=== PATIENT | male | born 1985 | race Caucasian/White ===

== ENCOUNTER 2023-05-04 00:39 | Emergency (ER) | payer BC ==
[2023-05-04] MEDS ORDERED: VANCOMYCIN 1 GM/VIAL ONE (03:50)
[2023-05-04] MEDS ORDERED: NA CHLORIDE 0.9% 500 ML ONE (03:51)
[2023-05-04] MEDS ORDERED: PIPERACIL/TAZO 3.375 GM VIAL IV ONE (03:51)
[2023-05-04] MEDS ORDERED: NA CHLORIDE 0.9% 100 ML ONE (03:51)
[2023-05-04] MEDS ORDERED: NA CHLORIDE 0.9% 1,000 ML ONE (03:51)
[2023-05-04 04:25] LABS: Absolute Lymphocytes (CBC) 2.7 K/uL (0.7-4.9); Hematocrit 41.1 % (39.6-49.0); MCV 92.5 fL (80-100); MPV 7.6 fL (7.6-11.3); Platelets 232 thou/uL (152-406); RBC Red Blood Cell Count 4.45 M/uL (4.33-5.43)
[2023-05-04 04:41] LABS: Albumin 3.7 g/dL (3.4-5.0); Bilirubin Direct 0.1 mg/dL (0-0.2); Bilirubin Indirect, Calculated 0.4 mg/dL (0.2-0.8); Bilirubin Total 0.5 mg/dL (0.2-1.0); C-Reactive Protein 22.6 mg/L (<3.00); Potassium 3.9 mEq/L (3.5-5.1); Protein, Total 7.3 g/dL (6.4-8.2)
--- NOTE | 2023-05-04 05:32 | ER ---
Nurse's Notes [facility] Name: Sonu Guthrie Age: 37 yrs Sex: Male : 1985 Arrival Date: 05/04/2023 Time: 00:39 Bed 19 Private MD: Diagnosis: Pain in right knee;Right knee postoperative pain Presentation: 05/04 01:21 Chief complaint: Patient states: PAIN/SWELLING R KNEE, R KNEE ARTHROSCOPY x5 DAYS WITH bp DR PRIEST \T\ [facility]. Coronavirus screen: At this time, the client does not indicate any symptoms associated with coronavirus-19. Ebola Screen: No symptoms or risks identified at this time. Initial Sepsis Screen: Does the patient meet any 2 criteria? No. Patient's initial sepsis screen is negative. Does the patient have a suspected source of infection?. Risk Assessment: Do you want to hurt yourself or someone else? Patient reports no desire to harm self or others. Onset of symptoms is unknown. 01:21 Method Of Arrival: Wheelchair bp 01:21 Acuity: SHERLEY 3 bp Historical: - Allergies: 01:23 Amiodarone; bp - Home Meds: 01:23 None [Active]; bp - PMHx: 01:23 None; bp - Immunization history:: Adult Immunizations up to date. - Social history:: Smoking status: Patient denies any tobacco usage or history of. - Family history:: not pertinent. Screenin:11 [facility] ED Fall Risk Assessment (Adult) History of falling in the last 3 months, jb4 including since admission No falls in past 3 months (0 pts) Confusion or Disorientation No (0 pts) Score/Fall Risk Level 0 - 2 = Low Risk Oriented to surroundings, Maintained a safe environment. Abuse screen: Denies threats or abuse. Nutritional screening: No deficits noted. Tuberculosis screening: No symptoms or risk factors identified. Assessment: 03:15 General: Appears in no apparent distress. comfortable, Behavior is calm, cooperative, jb4 appropriate for age. Pain: Complains of pain in right knee Pain does not radiate. Pain currently is 4 out of 10 on a pain scale. Neuro: Level of Consciousness is awake, alert, obeys commands, Oriented to person, place, time, situation. Cardiovascular: Patient's skin is warm and dry. Respiratory: Airway is patent Respiratory effort is even, unlabored, Respiratory pattern is regular, symmetrical. GI: No signs and/or symptoms were reported involving the gastrointestinal system. : No signs and/or symptoms were reported regarding the genitourinary system. EENT: No signs and/or symptoms were reported regarding the EENT system. Derm: Skin is intact, Skin is pink, warm \T\ dry. Musculoskeletal: Circulation, motion, and sensation intact. Range of motion: intact in all extremities. 04:15 Reassessment: Patient appears in no apparent distress at this time. Patient and/or jb4 family updated on plan of care and expected duration. Pain level reassessed. Patient is alert, oriented x 3, equal unlabored respirations, skin warm/dry/pink. 05:15 Reassessment: Patient appears in no apparent distress at this time. Patient and/or jb4 family updated on plan of care and expected duration. Pain level reassessed. Patient is alert, oriented x 3, equal unlabored respirations, skin warm/dry/pink. 06:11 Reassessment: Patient appears in no apparent distress at this time. Patient and/or jb4 family updated on plan of care and expected duration. Pain level reassessed. Patient is alert, oriented x 3, equal unlabored respirations, skin warm/dry/pink. Vital Signs: 01:21 BP 117 / 76; Pulse 100; Resp 16; Temp 98; Pulse Ox 96% ; Weight 117.93 kg; Height 6 ft. bp 0 in. ; 04:00 BP 123 / 86; Pulse 82; Resp 16; Pulse Ox 97% on R/A; jb4 05:00 BP 127 / 76; Pulse 82; Resp 16; Pulse Ox 98% on R/A; jb4 01:21 Body Mass Index 35.26 (117.93 kg, 182.88 cm) bp ED Course: 00:42 Patient arrived in ED. ag3 00:54 Markel Greenfield MD is Attending Physician. sp4 01:23 Triage completed. bp 01:39 Knee Right Wo Cont In Process Unspecified. EDMS 05:30 Extremity Venous Uni Ltd US In Process Unspecified. EDMS 05:31 Wilfrido Deal MD is Referral Physician. sp4 05:33 Magan Lemos, KIMBERLYN is Primary Nurse. jb4 06:11 Patient has correct armband on for positive identification. Bed in low position. Call jb4 light in reach. Side rails up X 1. 06:11 No provider procedures requiring assistance completed. IV discontinued, intact, jb4 bleeding controlled, No redness/swelling at site. Pressure dressing applied. Administered Medications: 04:58 Discontinued: piperacillin-tazobactam3.375 grams IVPB once over 60 mins; (mix in NS 100 jb4 mL) 04:19 Drug: NS 0.9% IV 1000 ml IV at 125 ml/hr continuous Route: IV; Rate: 125 ml/hr; Site: jb4 right antecubital; 04:19 Drug: Piperacillin-Tazobactam IVPB 3.375 grams IVPB once over 60 mins; (mix in NS 100 jb4 mL) Route: IVPB; Infused Over: 60 mins; Site: right antecubital; 04:58 Not Given (Physician Discretion): vancomycin2 grams IVPB at calculated rate once jb4 Medication: 06:11 VIS not applicable for this client. jb4 Outcome: 05:31 Discharge ordered by sp4 06:11 Discharged to home ambulatory, with crutches, with family, jb4 06:11 Condition: stable 06:11 Discharge instructions given to patient, Instructed on discharge instructions, follow up and referral plans. medication usage, Demonstrated understanding of instructions, follow-up care, medications, Prescriptions given X 1, 06:12 Patient left the ED. jb4 Signatures: Dispatcher [employer] EDMS Magan Lemos RN RN jb4 Quirino Santacruz RN RN bp Gomez, Alice 3 Markel Greenfield MD MD sp4
--- NOTE | 2023-05-04 05:32 | EDPHYS ---
Physician Documentation [facility] Name: Sonu Guthrie Age: 37 yrs Sex: Male : 1985 Arrival Date: 05/04/2023 Time: 00:39 Bed 19 Private MD: ED Physician Markel Greenfield HPI: 05/04 00:55 This 37 yrs old Male presents to ER via Unassigned with complaints of Post sp4 Surgical Pain. 01:18 37-year-old male with history of paroscopic right knee surgery, by Dr. Deal at the [address] 7 days ago, ending right knee pain starting Wednesday 4 days ago. Patient states there is redness, swelling, persistent pain with worsening pain starting 4 days ago. Patient is here for evaluation of the right knee pain. Patient is not certain what type of repair was done on the right knee. . Historical: - Allergies: 01:23 Amiodarone; bp - Home Meds: 01:23 None [Active]; bp - PMHx: 01:23 None; bp - Immunization history:: Adult Immunizations up to date. - Social history:: Smoking status: Patient denies any tobacco usage or history of. - Family history:: not pertinent. ROS: 01:18 Constitutional: Negative for fever, chills, and weight loss, MS/Extremity: Negative for sp4 injury and deformity, positive for right knee pain, positive for right knee swelling, positive right knee decreased range of motion. 01:18 All other systems are negative, Exam: 01:18 Constitutional: This is a well developed, well nourished patient who is awake, alert, sp4 and in no acute distress. Head/Face: Normocephalic, atraumatic. Eyes: Pupils equal round and reactive to light, extra-ocular motions intact. Lids and lashes normal. Conjunctiva and sclera are not injected. Cornea within normal limits. Periorbital areas with no swelling, redness, or edema. ENT: Nares patent. No nasal discharge, no septal abnormalities noted. Tympanic membranes are normal and external auditory canals are clear. Oropharynx with no redness, swelling, or masses, exudates, or evidence of obstruction, uvula midline. Mucous membranes moist. Neck: Trachea midline, no thyromegaly or masses palpated, and no cervical lymphadenopathy. Supple, full range of motion without nuchal rigidity, or vertebral point tenderness. Chest/axilla: Normal chest wall appearance and motion. Nontender with no deformity. No lesions are appreciated. Cardiovascular: Regular rate and rhythm with a normal S1 and S2. No gallops, murmurs, or rubs. Normal PMI, no JVD. No pulse deficits. Respiratory: Lungs have equal breath sounds bilaterally, clear to auscultation and percussion. No rales, rhonchi or wheezes noted. No increased work of breathing, no retractions or nasal flaring. Abdomen/GI: Soft, non-tender, with normal bowel sounds. No distension or tympany. No guarding or rebound. No evidence of tenderness throughout. Back: No spinal tenderness. No costovertebral tenderness. Skin: Warm, dry with normal turgor. Normal color with no rashes, no lesions, and no evidence of cellulitis. MS/ Extremity: Pulses equal, no cyanosis. Neurovascular intact. Right knee postoperative bandages, right knee swelling, right knee redness, right knee pain, right knee decreased range of motion, right knee tenderness Neuro: Awake and alert, GCS 15, oriented to person, place, time, and situation. Cranial nerves II-XII grossly intact. Motor strength 5/5 in all extremities. Sensory grossly intact. Psych: Awake, alert, with orientation to person, place and time. Behavior, mood, and affect are within normal limits Vital Signs: 01:21 BP 117 / 76; Pulse 100; Resp 16; Temp 98; Pulse Ox 96% ; Weight 117.93 kg; Height 6 ft. bp 0 in. ; 04:00 BP 123 / 86; Pulse 82; Resp 16; Pulse Ox 97% on R/A; jb4 05:00 BP 127 / 76; Pulse 82; Resp 16; Pulse Ox 98% on R/A; jb4 01:21 Body Mass Index 35.26 (117.93 kg, 182.88 cm) bp MDM: 00:56 Patient medically screened. sp4 04:55 ED course: CT report - EXAM: CT Right Lower Extremity Without Intravenous Contrast, sp4 Knee CLINICAL HISTORY: The patient is 37 years old and is Male; Order R knee CT No contrast TECHNIQUE: Axial computed tomography images of the right knee without intravenous contrast. Sagittal and coronal reformatted images were created and reviewed. This CT exam was performed using one or more of the following dose reduction techniques: automated exposure control, adjustment of the mA and/or kV according to patient size, and/or use of iterative reconstruction technique. COMPARISON: No relevant prior studies available. FINDINGS: BONES/JOINTS: A moderate-sized suprapatellar joint effusion is present. There is no acute fracture or dislocation. The bone mineralization and contour is normal. SOFT TISSUES: Skin dash about the knee is noted. Mild soft tissue swelling along the anterior aspect of the knee is present. IMPRESSION: Moderate suprapatellar joint effusion. No underlying acute bony abnormality. . 05:30 Differential Diagnosis altered mental status, sepsis, flu. Data reviewed: vital signs, sp4 nurses notes, lab test result(s), radiologic studies, CT scan, ultrasound. Consideration of Admission/Observation Escalation of care including admission/observation considered. ED course: Patient was evaluated by orthopedist who reported that he does not believe this is an infection at this time however, patient was advised to monitor for worsening pain and swelling. Will apply temporary knee immobilizer and advised no weightbearing on the right lower extremity. DVT scan negative. 05/04 01:16 Order name: Basic Metabolic Panel; Complete Time: 04:51 sp4 05/04 01:16 Order name: CBC with Diff; Complete Time: 04:28 sp4 05/04 01:16 Order name: LFT's; Complete Time: 04:51 sp4 05/04 01:16 Order name: Blood Culture Adult (2) sp4 05/04 01:16 Order name: CRP; Complete Time: 04:51 sp4 05/04 01:15 Order name: CT Traumagram (Head C Spine CAP W Con) sp4 05/04 01:19 Order name: Knee Right Wo Cont EDMS 05/04 04:55 Order name: Extremity Venous Uni Ltd US sp4 05/04 01:16 Order name: IV Saline Lock; Complete Time: 04:19 sp4 05/04 01:16 Order name: Labs collected and sent; Complete Time: 04:19 sp4 Administered Medications: 04:58 Discontinued: piperacillin-tazobactam3.375 grams IVPB once over 60 mins; (mix in NS 100 jb4 mL) 04:19 Drug: NS 0.9% IV 1000 ml IV at 125 ml/hr continuous Route: IV; Rate: 125 ml/hr; Site: jb4 right antecubital; 04:19 Drug: Piperacillin-Tazobactam IVPB 3.375 grams IVPB once over 60 mins; (mix in NS 100 jb4 mL) Route: IVPB; Infused Over: 60 mins; Site: right antecubital; 04:58 Not Given (Physician Discretion): vancomycin2 grams IVPB at calculated rate once jb4 Disposition Summary: 05/04/23 05:31 Discharge Ordered Notes: Location: Home sp4 Problem: new sp4 Symptoms: have improved sp4 Condition: Stable sp4 Diagnosis - Pain in right knee sp4 - Right knee postoperative pain sp4 Followup: sp4 - With: Wilfrido Deal MD - When: 7 - 10 days - Reason: Recheck today's complaints Discharge Instructions: - Discharge Summary Sheet sp4 - How to Use a Knee Brace sp4 Forms: - Patient Portal Instructions sp4 Prescriptions: - acetaminophen-codeine 300-15 mg Oral tablet - take 1 tablet ORAL route every 8 hours PRN pain; 20 tablet; Refills: 0, Product sp4 Selection Permitted Signatures: Dispatcher [employer] Magan Awan RN RN jb4 Quirino Santacruz RN RN bp Potepalov, Sergey, MD MD sp4
[2023-05-04 06:16] VITALS: TEMP 98
--- NOTE | 2023-05-04 06:16 | CON ---
Date of Consultation: 05/04/2023 History Of Present Illness: I am called about the patient early this morning stating that he was in the emergency department that he had red, hot, swollen knee after right knee arthroscopy and I come i mmediately to the emergency room to see him. He has had a CT scan. He has had x-rays. He has also had blood work. On physical examination, there is minimal if any redness to the right knee, although he does have perhaps a 1+ effusion. The incisions are clean, dry, and intact with no sign of draina ge or erythema. Range of motion of the knee from full extension to approximately 60 degrees of flexi on of the bed does not cause any pain or tenderness, although he says that this is strange as it has been hurting him previously. On further review with history, he says that he began having pain perha ps on of last week, which was 2 days after the arthroscopy. He said that he first noticed i t whenever he was trying to walk toward a baby gate with crutches and said he felt kind of a pop in h is knee and since that time he has pain which has been increasing and decreasing, maybe depending on activity. He has been trying to work, he says he has been in a relatively long car ride and that als o made it hurt worse. His family was there and they said they have taken his temperature several hector es and it has been normal at 97 because he was experiencing some feelings of chills and they were con cerned so they brought him to the emergency department. On laboratory examination, his white blood c ell count was normal. He is currently afebrile with a temperature of 98. He does have CRP which is 22, which is slightly elevated, however, nonspecific and definitely not highly elevated, could be ref lected from even recent surgery, although he is a little far off from that, definitely does have infl ammatory issue related with his knee. At this time, clinical decision making is to observe this clos lopez with icing and rest as it is currently without pain while he is lying in the bed and there is no pain with range of motion of knee, minimal swelling although present, and no significant erythema. I t is also decided not to move forward with aspiration, all this was discussed with the patient at [facility] because clinical finding of no pain with range of motion is quite strong for this is coming back normal, or if it did come back, it could be compromised by contaminant or other issue. He was given antibiotics before I came to the emergency room, however, he has not completed these at this time and definitely going to stop those because if he does have infection, we definitely want to clear itself over time. As he is here and he is having issues related to his knee and lower extremity, I have as ked the emergency department if they would please obtain a venous Doppler. He does have a history of blood clots in his family and it will be finally important not to consider this as part of the diffe rential, however, I doubt that it will be positive. Obviously, if it is, changes his management quit e a bit then it would be good to have that information. Otherwise, he will at least call our office on to let us know how he is doing. Obviously, told to return to the emergency room with any increasing problems with fever or increasing pain, especially pain with inability to flex and extend the knee. His family was present. We saw them and discussed with them. He does have pain medicati on at home. He says he has only been taking it intermittently and when he does take it he feels bett er. GUZMAN/STEVIE Voice ID: [id number] Report ID: [id number]
[2023-05-04 06:19] VITALS: BP 127/76; O2SAT 98
--- NOTE | 2023-05-04 19:04 | RAD REPORT ---
EXAM DESCRIPTION: CT - Knee Right Wo Cont - 05/04/2023 1:37 am CLINICAL HISTORY: The patient is 37 years old and is Male; Order R knee CT No contrast TECHNIQUE: Axial computed tomography images of the right knee without intravenous contrast. Sagitt al and coronal reformatted images were created and reviewed. This CT exam was performed using one o r more of the following dose reduction techniques: automated exposure control, adjustment of the mA and/or kV according to patient size, and/or use of iterative reconstruction technique. COMPARISON: No relevant prior studies available. FINDINGS: BONES/JOINTS: A moderate-sized suprapatellar joint effusion is present. There is no acut e fracture or dislocation. The bone mineralization and contour is normal. SOFT TISSUES: Skin dash about the knee is noted. Mild soft tissue swelling along the anterio r aspect of the knee is present. IMPRESSION: Moderate suprapatellar joint effusion. No underlying acute bony abnormality. Electronically signed by: Erica Canela MD 05/04/2023 01:58 AM LIDAR SCIENTIST Due to temporary technical issues with the PACS/Fluency reporting system, reports are being signed by the in house radiologists without review as a courtesy to insure prompt reporting. The interpreting radiologist is fully responsible for the content of the report.
--- NOTE | 2023-05-05 10:45 | RAD REPORT ---
EXAM DESCRIPTION: US - Extremity Venous Uni Ltd - 05/04/2023 5:28 am CLINICAL HISTORY: Right lower leg pain COMPARISON: CT right knee without contrast 05/04/2023 TECHNIQUE: Grayscale, color Doppler, duplex Doppler, spectral Doppler images and analysis with compr ession and augmentation of right lower extremity veins. FINDINGS: Right common femoral, greater saphenous, femoral, deep (profunda) femoral, popliteal, post erior tibial veins unremarkable without evidence of clot. IMPRESSION: No sonographic evidence of right lower extremity DVT. Electronically signed by: Trae Rehman MD 05/04/2023 06:03 AM [employer]TAINS [employer] SALESPERSON Due to temporary technical issues with the PACS/Fluency reporting system, reports are being signed by the in house radiologist without review as a courtesy to ensure prompt reporting. The interpreting r adiologist is fully responsible for the content of the report.
== END 2023-05-04 06:12 | disposition home or self-care (01) ==
LOC: ER 00:39
DX: G89.18 Other acute postprocedural pain (principal); Z96.651 Presence of right artificial knee joint; Z88.8 Allergy status to other drugs, medicaments and biological substances
CPT/HCPCS: 87040 ×2; 85025; 80048; 36415; 80076; 86140; 73700; 93971; 96374; 99284; J2543; J7040; J7030